=== PATIENT | female | born 1950 | race Caucasian/White ===

== ENCOUNTER → 2018-11-29 | Outpatient (CLI) | payer MEDICARE, BC ==
--- NOTE | 2018-11-30 13:54 | MM ---
Reason for exam: screening (asymptomatic). Last mammogram was performed 3 years ago. History: Patient is postmenopausal. Family history of breast cancer in paternal cousin and breast cancer in paternal grandmother. Reductions of both breasts, 2008. Took estrogen for 22 years beginning at age 33. Physical Findings: A clinical breast exam by your physician is recommended on an annual basis and results should be correlated with mammographic findings. MG 3D Screening Mammo W/Cad Bilateral CC and MLO view(s) were taken. Prior study comparison: December 03, 2015, bilateral MG 3d screening mammo w/cad. May 31, 2013, CAD bilateral diagnostic mammogram. There is a 3mm group of left lower outer quadrant calcifications at far posterior depth. No suspicious abnormality on the right. Post surgical change on the left. ASSESSMENT: Incomplete: need additional imaging evaluation, BI-RAD 0 RECOMMENDATION: Special view mammogram of the left breast. Ultrasound of the right breast. (pain) [facility] will attempt to contact patient to return for supplemental views and ultrasound.
== END | disposition home or self-care (01) ==
LOC: RADMAMWWP 12:41
PROVIDERS: ATTEND Family Medicine
DX: Z12.31 Encounter for screening mammogram for malignant neoplasm of breast (principal)
CPT/HCPCS: 77063; 77067

== ENCOUNTER → 2018-12-09 | Outpatient (CLI) | payer MEDICARE, BC ==
--- NOTE | 2018-12-09 11:41 | MM ---
Reason for exam: additional evaluation requested from abnormal screening. Last mammogram was performed less than 1 month ago. History: Patient is postmenopausal. Family history of breast cancer in paternal cousin and breast cancer in paternal grandmother. Reductions of both breasts, 2008. Took estrogen for 22 years beginning at age 33. Physical Findings: Nurse did not find any significant physical abnormalities on exam. MG 3D Work Up W/Cad LT CC with magnification, LM with magnification, and LM view(s) were taken of the left breast. Prior study comparison: November 29, 2018, bilateral MG 3d screening mammo w/cad. December 03, 2015, bilateral MG 3d screening mammo w/cad. There are scattered fibroglandular densities. Posterior scarring. Approximately 3 course calcifications are present posteriorly in the lower outer quadrant. These could be dystrophic secretory or vascular and were seen back to 2012. These results were verbally communicated with the patient and result sheet given to the patient on 12/09/18. ASSESSMENT: Incomplete: need additional imaging evaluation, BI-RAD 0 RECOMMENDATION: Ultrasound. (for pain)
--- NOTE | 2018-12-09 11:43 | USB ---
Reason for exam: additional evaluation requested from abnormal screening. History: Patient is postmenopausal. Family history of breast cancer in paternal cousin and breast cancer in paternal grandmother. Reductions of both breasts, 2008. Took estrogen for 22 years beginning at age 33. US Breast Workup Limited RT Right limited breast ultrasound including focal area of concern, retroareolar and axilla demonstrates a 5 x 5 x 6mm oval, solid, hypoechoic and hyperechoic lesion at 9 o'clock possible fat necrosis or tiny hematoma for which a 3 month follow up is recommended and a 13mm oval, benign lymph node at the axilla tail. These results were verbally communicated with the patient and result sheet given to the patient on 12/09/18. ASSESSMENT: Probably benign, BI-RAD 3 RECOMMENDATION: Ultrasound of the right breast in 3 months. (9 o'clock)
== END | disposition home or self-care (01) ==
LOC: RADMAMWWP 10:08
PROVIDERS: ATTEND Family Medicine
DX: R92.8 Other abnormal and inconclusive findings on diagnostic imaging of breast (principal)
CPT/HCPCS: 77065; 76642; G0279; 77061

== ENCOUNTER → 2019-04-06 | Outpatient (CLI) | payer MEDICARE, BC ==
--- NOTE | 2019-04-06 10:53 | USB ---
Reason for exam: follow-up at short interval from prior study. History: Patient is postmenopausal. Family history of breast cancer in paternal cousin and breast cancer in paternal grandmother. Reductions of both breasts, 2007. Took estrogen for 22 years beginning at age 33. Physical Findings: Nurse Summary: prominent tissue at scars, tenderness right outer breast, all soft, movable (nurse ts). US Breast Limited RT Right limited breast ultrasound including focal area of concern, retroareolar and axilla demonstrates a 5 x 4 x 6mm oval, hypoechoic lesion with echogenic rim at 9 o'clock and a 3 x 3 x 2mm lobular, hypoechoic lesion with echogenic rim at 10 o'clock. Biopsy of both recommended. These results were verbally communicated with the patient and result sheet given to the patient on 04/06/19. ASSESSMENT: Suspicious, BI-RAD 4 RECOMMENDATION: Ultrasound core biopsy of the right breast. (x 2) Patient not interested in scheduling surgical consult or biopsy at this time. Dr. Salgado's office notified 04/06/19 t 10:35am.
== END | disposition home or self-care (01) ==
LOC: RADUSWWP 09:23
PROVIDERS: ATTEND Family Medicine
DX: R92.8 Other abnormal and inconclusive findings on diagnostic imaging of breast (principal)

== ENCOUNTER → 2019-04-27 | Outpatient (CLI) | payer MEDICARE, BC ==
[2019-04-27 15:56] VITALS: BP 127/77; PULSE 61; RESP 16; TEMP 98; BMI 31.1
--- NOTE | 2019-04-27 16:51 | P.GSHP ---
History of Present Illness H&P Date: 04/27/19 Chief Complaint: abnormal mammogram and ultrasound of the breast, breast pain Vi is a 68-year-old white female who comes for breast evaluation secondary to radiographic abnormality. [place] [address]. There was a 3 mm groove with left lower outer quadrant calcifications. No suspicious abnormality was noted on the right. Special mammographic views of the left breast were recommended an ultrasound of the right breast for pain w as recommended. The patient had repeat views of the left breast on and [id number] the patient's findings revealed again 3 coarse calcifications posteriorly in the lower outer quadrant. The patient then proceeded to a right breast ultrasound for which repeat right breast ultrasound and 3 months was recommended this is most recently done on [id number]. This revealed 2 areas of concern one which was a 5 x 6 mm lesion at 9:00 and the second 3 x 2 mm lesion at 10:00 and biopsy of both of these were recommended. Of importance is the fact that the patient has had bilateral breast reduction after back surgery. Her breast were 46 triple D and she is now down to a cup size of C. The patient herself does not feel any masses or lumps in her breasts. She does complain of some discomfort in the left lateral breast. She states that this is in the lower aspect of the breast and occurs when she takes deep breaths. She is uncertain to whether this is actually in the breast or may be related to the muscles of the chest wall or lungs. Patient does not have any nipple discharge or skin changes. Caffiene two cups of coffee, she drinks 3 cola week; she does not smoke and is not exposed to second hand smoke. She eats chocolate occasionally. She does not take any hormones. Family History: paternal grandmother: breast paternal cousin: breast cancer at 36 Hormonal history: Menarche: 11 breast fed: none, first born at 22 Menopause: hysterectomy at 33 for bleeding, left ovaries BCP: 15 years hormones: none Medical history: none Surgical History: right foot left knee bilateral elbows two back surgeries Social History: smoke: none alcohol: occasional drugs: none - Constitutional Constitutional: Denies chills, Denies fever - EENT Eyes: denies blurred vision, denies pain Ears: deny: decreased hearing, tinnitus Ears, nose, mouth and throat: Reports headache, Denies sore throat - Breasts Breasts: bilateral: as per HPI - Cardiovascular Comment: left side ? breast vs. lungs Cardiovascular: Reports chest pain, Denies shortness of breath - Respiratory Comment: bronchitis Respiratory: Denies cough, Denies 7 - Gastrointestinal Gastrointestinal: Denies abdominal pain, Denies diarrhea, Denies nausea, Denies vomiting - Genitourinary (Female) Genitourinary: Denies dysuria, Denies hematuria - Menstruation Menstruation: Reports post hysterectomy - Musculoskeletal Comment: Arthritis, degenerative joint disease, myalgias - Integumentary Integumentary: Denies pruritus, Denies rash - Neurological Neurological: Reports numbness, Reports weakness - Psychiatric Psychiatric: Reports depression, Denies anxiety - Endocrine Endocrine: Reports fatigue, Denies weight change - Hematologic/Lymphatic Comment: low platelets in the past - Allergic/Immunologic Allergic/Immunologic: Reports as per HPI Past Medical History Past Medical History: Hyperlipidemia, Hypertension History of Any Multi-Drug Resistant Organisms: None Reported Past Surgical History: Back Surgery, Hysterectomy, Orthopedic Surgery Additional Past Surgical History / Comment(s): rt shoulder ,rt foot,lt knee,jessica elbows Past Psychological History: Anxiety, Depression Smoking Status: Never smoker Past Alcohol Use History: Rare Past Drug Use History: None Reported Medications and Allergies Home Medications Medication Instructions Recorded Confirmed Type Escitalopram [Lexapro] 20 mg PO DAILY 07/19/15 04/27/19 History Lisinopril [Zestril] 20 mg PO DAILY 07/19/15 04/27/19 History ALPRAZolam [Xanax] 0.5 mg PO DAILY PRN 04/27/19 04/27/19 History Acetaminophen [Tylenol] 500 mg PO Q4-6H PRN 04/27/19 04/27/19 History Atorvastatin [Lipitor] 20 mg PO DAILY 04/27/19 04/27/19 History Calcium Carbonate [Calcium] 600 mg PO DAILY 04/27/19 04/27/19 History Ferrous Sulfate [Iron] 325 mg PO DAILY 04/27/19 04/27/19 History buPROPion SR [Wellbutrin Sr] 150 mg PO BID 04/27/19 04/27/19 History Allergies Allergy/AdvReac Type Severity Reaction Status Date / Time No Known Allergies Allergy Verified 04/27/19 15:21 Surgical - Exam Vital Signs Temp Pulse Resp BP Pulse Ox 98.0 F 61 16 127/77 95 04/27/19 15:22 04/27/19 15:22 04/27/19 15:22 04/27/19 15:22 04/27/19 15:22 BMI 31.2 - General well developed, well nourished, no distress - Eyes normal ocular movement - ENT normal pinna, no hearing loss - Neck no masses, trachea midline, no lymphadectomy - Respiratory normal expansion, normal respiratory effort, clear to auscultation - Cardiovascular Rhythm: regular Heart Sounds: normal: S1, S2 - Abdomen Abdomen: soft, non tender, no guarding, no rigid, no rebound - Integumentary normal turgor - Neurologic no disoriented, no combative - Musculoskeletal normal gait, normal posture - Psychiatric oriented to time, oriented to person, oriented to place, speech is normal, memory intact breast exam: Patient's breast were 48 triple D patient's best now are 48 C Patient has scars bilaterally from bilateral breast reduction Right breast: Multi-positional exam no dominant masses or nodules of concern, well-healed scars from prior lateral breast reduction noted Right axilla: No adenopathy of concern Left breast: Multi-positional exam well-healed scar from prior breast reduction fibrocystic changes no dominant masses or nodules of concern other than the fact the patient does have increased nodularity in the lateral aspect of the breast which is consistent with the area that is painful for the patient Left axilla: No adenopathy of concern Results Radiographic results reviewed Assessment and Plan Assessment: Impression: 1. Radiographic abnormality right breast mammogram and ultrasound 2. Nodularity left breast upper outer quadrant area 3. Breast pain 4. Fibrocystic breast changes 5. Family history of cancer 6. Patient with marked degenerative joint disease making movement of the shoulders difficult 7. Scar tissue within the breast related to the bilateral breast reduction making the breast more difficult to examine, this may also be related to the breast pain Plan: 1. Ultrasound of left breast in the area of increased nodularity and pain 2. Ultrasound core biopsy right breast 3. I've instructed the patient about decreasing caffeine intake as this may increase breast discomfort 4. Follow-up after breast biopsies About 5 minutes spent with the patient, > 50% of time planning and face time. CC: DR. Salo Salgado
== END | disposition home or self-care (01) ==
LOC: WWCWWP 14:59
PROVIDERS: ATTEND Surgery
DX: Z53.9 Procedure and treatment not carried out, unspecified reason (principal)

== ENCOUNTER → 2019-04-29 | Outpatient (CLI) | payer MEDICARE, BC ==
--- NOTE | 2019-05-02 09:07 | USB ---
Reason for exam: additional evaluation requested from prior study. History: Patient is postmenopausal. Family history of breast cancer in paternal cousin and breast cancer in paternal grandmother. Reductions of both breasts, 2008. Took estrogen for 22 years beginning at age 33. Physical Findings: Nurse Summary: Patient complains of left breast upper outer quadrant breast pain x 2 months intermittently. Patient states Dr. Etienne felt left breast nodule x 2 days ago. Lateral left breast pain with exam (nurse mirella). US Breast LT Left complete breast ultrasound includes all four quadrants, the retroareolar region and axilla. Finding demonstrates no cystic or solid lesion seen. No suspicious sonographic finding. These results were verbally communicated with the patient and result sheet given to the patient on 04/29/19. ASSESSMENT: Negative, BI-RAD 1 RECOMMENDATION: Clinical management of the left breast. Recommendation remains for right biopsy x 2. Scheduled for biopsy 05/09/19.
== END | disposition home or self-care (01) ==
LOC: RADUSWWP 13:32
PROVIDERS: ATTEND Surgery
DX: R92.8 Other abnormal and inconclusive findings on diagnostic imaging of breast (principal)

== ENCOUNTER → 2019-05-09 | Day surgery (SDC) | payer MEDICARE, BC ==
[2019-05-09 11:39] VITALS: RESP 16; TEMP 98.5; BMI 31.1
[2019-05-09 14:00] VITALS: BP 100/65; PULSE 57
--- NOTE | 2019-05-10 04:46 | USB ---
EXAMINATION TYPE: US biopsy breast VAD RT (2 site), MG diagnostic mammo RT wo CAD DATE OF EXAM: 05/09/2019 CLINICAL HISTORY: 68-year-old female referred for ultrasound-guided right breast biopsy of small pers istent echogenic areas which were initially followed due to possibility of small hematomas. TECHNIQUE: Ultrasound guided core biopsy of the right breast. COMPARISON: 04/06/2019 and 12/09/2018 FINDINGS: The procedure of ultrasound guided core biopsy was explained to the patient. Benefits, alt ernatives, and risks were discussed. An informed consent was then obtained. The patient was placed in supine positioning for imaging and for the procedure. The overlying skin w as prepped and draped in usual sterile fashion. Lidocaine was used as anesthetic into the skin and toure bcutaneous tissue up to area of concern in the right breast in turn. SITE 1, 10:00: Under ultrasound guidance, a 13-gauge vacuum assisted mammotome Elite biopsy gun was u sed to obtain 4 core samples. Following this, a ribbon clip was left in lesion. We note that the ar ea became very difficult to visualize after the anesthetic administration which makes a worrisome les ion felt to be less likely. SITE 2, 9:00: Under ultrasound guidance, a 13-gauge vacuum assisted mammotome Elite biopsy gun was us ed to obtain 3 core samples. Following this, a coil clip was left in lesion. The patient tolerated the procedure well without any immediate complication. The patient was kept in the radiology department for short stay after the procedure and then discharged home in stable condi tion. Post procedure mammogram shows clips in satisfactory position. There may have been a vague density as sociated with the 10:00 site of ribbon clip deployment. IMPRESSION: Successful, uncomplicated ultrasound guided core biopsy of 2 relatively similar echogenic lesions in the right breast, 9:00 and 10:00, initially suspected to represent small hematomas but persisting aft er 3 months. Full pathology results to follow.
== END ==
LOC: RADUSWWP 11:17
PROVIDERS: ATTEND Surgery
DX: N60.91 Unspecified benign mammary dysplasia of right breast (principal); R92.1 Mammographic calcification found on diagnostic imaging of breast; N60.11 Diffuse cystic mastopathy of right breast; R92.8 Other abnormal and inconclusive findings on diagnostic imaging of breast
CPT/HCPCS: 88305; 77065; 19083; 19084; A4648; J2001

== ENCOUNTER → 2019-05-13 | Outpatient (CLI) | payer MEDICARE, BC ==
[2019-05-13 11:57] VITALS: BP 151/78; PULSE 62; RESP 18; TEMP 97.9; BMI 31.1
--- NOTE | 2019-05-13 12:23 | P.PN ---
Subjective Progress Note Date: 05/13/19 Principal diagnosis: atypia Core biopsy right breast at 10:00 Vi is a 68 white female who underwent ultrasound-guided core biopsy of 2 areas of concern in the right breast performed on [id number]. The lesion at 10:00 revealed focal atypical ductal hyperplasia with associated calcifications. The lesion at 9:00 was fibrocystic changes. The patient did not have any complications related to the procedure. Objective - Vital Signs Vital signs: Vital Signs Temp 97.9 F 05/13/19 11:54 Pulse 62 05/13/19 11:54 Resp 18 05/13/19 11:54 BP 151/78 05/13/19 11:54 Pulse Ox 96 05/13/19 11:54 - Exam BMI 29.3 - Constitutional General appearance: Present: average body habitus - EENT Eyes: Present: EOMI ENT: Present: hearing grossly normal - Neck Neck: Present: normal ROM - Respiratory Respiratory: bilateral: CTA - Cardiovascular Rhythm: regular Heart sounds: normal: S1, S2 - Integumentary Integumentary: Present: normal turgor - Musculoskeletal Musculoskeletal: Present: gait normal - Psychiatric Psychiatric: Present: A&O x's 3, appropriate affect, intact judgment & insight - Additional findings Additional findings: Breasts: Biopsy sites clean and dry mild ecchymosis No evidence of infection Assessment and Plan Assessment: Impression: 1. Ultrasound core biopsy right breast upper. Atypia 2. 9 o'clock position core biopsy benign fibrocystic disease 3. Family history of cancer 4. Patient with degenerative joint disease in. Movement of her shoulders 5. Patient status post bilateral reduction mammoplasty Plan: 1. Needle local excisional biopsy of area of atypia in the right breast with hpossible tissue transfer 2.Patient decreased caffiene intake Skin benefits of the needle local excisional biopsy were discussed with the patient and her . They understand she will be scheduled in the near future. Cc:
== END ==
LOC: WWCWWP 11:48
PROVIDERS: ATTEND Surgery
DX: Z53.9 Procedure and treatment not carried out, unspecified reason (principal)

== ENCOUNTER → 2019-07-07 | Outpatient (CLI) | payer MEDICARE, BC ==
[2019-07-07 14:30] VITALS: BP 123/79; PULSE 66; RESP 18; TEMP 98.4
== END | disposition home or self-care (01) ==
LOC: WWCWWP 13:55
PROVIDERS: ATTEND Surgery
DX: Z53.9 Procedure and treatment not carried out, unspecified reason (principal)

== ENCOUNTER 2019-07-12 10:21 | Day surgery (SDC) | payer MEDICARE, BC ==
[2019-07-08 11:43] VITALS: BMI 31.1
--- NOTE | 2019-07-08 17:50 | P.PN ---
Curtis Lebron is a 68-year-old white female who underwent ultrasound-guided core biopsy of 2 areas of concern in the right breast on [id number]. The lesion at 10:00 revealed focal atypical ductal hyperplasia with associated calcifications. The lesion 9:00 was fibrocystic changes. The patient did not have any complications related to the procedure. She is going to undergo a needle local excisional biopsy of the area of atypical ductal hyperplasia. Family History: paternal grandmother: breast paternal cousin: breast cancer at 36 Hormonal history: Menarche: 11 breast fed: none, first born at 22 Menopause: hysterectomy at 33 for bleeding, left ovaries BCP: 15 years hormones: none Medical history: none Surgical History: right foot left knee bilateral elbows two back surgeries Social History: smoke: none alcohol: occasional drugs: none - Constitutional Constitutional: Denies chills, Denies fever - EENT Eyes: denies blurred vision, denies pain Ears: deny: decreased hearing, tinnitus Ears, nose, mouth and throat: Reports headache, Denies sore throat - Breasts Breasts: bilateral: as per HPI - Cardiovascular Comment: left side ? breast vs. lungs Cardiovascular: Reports chest pain, Denies shortness of breath - Respiratory Comment: bronchitis Respiratory: Denies cough, Denies 7 - Gastrointestinal Gastrointestinal: Denies abdominal pain, Denies diarrhea, Denies nausea, Denies vomiting - Genitourinary (Female) Genitourinary: Denies dysuria, Denies hematuria - Menstruation Menstruation: Reports post hysterectomy - Musculoskeletal Comment: Arthritis, degenerative joint disease, myalgias - Integumentary Integumentary: Denies pruritus, Denies rash - Neurological Neurological: Reports numbness, Reports weakness - Psychiatric Psychiatric: Reports depression, Denies anxiety - Endocrine Endocrine: Reports fatigue, Denies weight change - Hematologic/Lymphatic Comment: low platelets in the past - Allergic/Immunologic Allergic/Immunologic: Reports as per HPI Past Medical History Past Medical History: Hyperlipidemia, Hypertension History of Any Multi-Drug Resistant Organisms: None Reported Past Surgical History: Back Surgery, Hysterectomy, Orthopedic Surgery Additional Past Surgical History / Comment(s): rt shoulder ,rt foot,lt knee,jessica elbows Past Psychological History: Anxiety, Depression Smoking Status: Never smoker Past Alcohol Use History: Rare Past Drug Use History: None Reported Objective - Vital Signs Vital signs: Intake & Output 07/07/19 07/08/1920 18:59 06:59 18:59 Weight 74.843 kg - Exam BMI 31.2 - Constitutional General appearance: Present: average body habitus - EENT Eyes: Present: EOMI ENT: Present: hearing grossly normal - Neck Neck: Present: normal ROM - Respiratory Respiratory: bilateral: CTA - Cardiovascular Rhythm: regular Heart sounds: normal: S1, S2 - Gastrointestinal General gastrointestinal: Present: normal bowel sounds, soft - Integumentary Integumentary: Present: normal turgor - Musculoskeletal Musculoskeletal: Present: gait normal - Psychiatric Psychiatric: Present: A&O x's 3, appropriate affect, intact judgment & insight - Additional findings Additional findings: Breast exam: Patient's breast size 40 8C Patient has scars bilaterally from bilateral breast reduction Right breast: Multiple positional exam no dominant mass or nodule is of concern, well-healed scars from prior breast reduction Right axilla: No adenopathy of concern Left breast multiple positional exam without scar from prior breast reduction fibrocystic changes no dominant masses or nodules of concern The patient was noted to have nodularity in the lateral aspect of the breast which was consistent with the area that was painful for the patient Left axilla: No adenopathy of concern Assessment and Plan Assessment: Impression: 1. stero-tactic core biopsy right breast 2 areas 10:00 area focal atypical ductal hyperplasia 2. Nodularity left breast upper outer quadrant area following this 3. Breast pain 4. Fibrocystic breast changes 5. Family history of cancer 6. Patient with degenerative joint disease making movement of his shoulders difficult 7. Scar tissue within the breast related to bilateral breast reduction making breast more difficult to examine Plan: needle localization and excisional biopsy area of atypia in the right breast Risks and benefits of surgery discussed with the patient and this will be done in the near future.
[~2019-07-12 10:21] MED LIST: DEXAMETHASONE SOD PHOSPHATE 10 MG/ML 1 ML VIAL IV ONE; HEPARIN SODIUM,PORCINE 5,000 UNIT/ML 1 ML VIAL SQ ONE; HYDROmorphone 0.5 MG/0.5 ML SYRINGE IVP PRN; LACTATED RINGERS 1,000 ML IV SCH; LIDOCAINE 1% 20 ML VIAL (10MG/ML) FOR IV START INTRADERMA PRN; MIDAZOLAM 2 MG/2 ML VIAL IV PRN; ONDANSETRON 4 MG/2 ML VIAL IVP ONE; Pre Op ABX Message 1 EACH MISC MISCELLANE ONE; SCOPOLAMINE 1.5MG/72HR PATCH TRANSDERM ONE
[2019-07-12 11:31] VITALS: RESP 16
[2019-07-12] MEDS ORDERED: LIDOCAINE 1% INJ 10MG/ML (20 ML MDV) SQ ONE ×3 (11:38→13:31)
[2019-07-12] MEDS ORDERED: fentaNYL (PF) 50 MCG/ML 2 ML AMP ONE (13:09)
[2019-07-12] MEDS ORDERED: PROPOFOL 10 MG/ML 20 ML VIAL IV ONE (13:09)
[2019-07-12] MEDS ORDERED: LIDOCAINE 1% INJ 10MG/ML (20 ML MDV) ONE (13:09)
[2019-07-12] MEDS ORDERED: MIDAZOLAM 2 MG/2 ML VIAL ONE (13:09)
[2019-07-12] MEDS ORDERED: SUCCINYLCHOLINE CHLORIDE 100 MG/5 ML SYR IV ONE (13:09)
[2019-07-12] MEDS ORDERED: LIDOCAINE (PF) 10 MG/ML 2 ML VIAL SQ ONE (13:17)
[2019-07-12] MEDS ORDERED: LACTATED RINGERS 1,000 ML IV ONE (13:36)
--- NOTE | 2019-07-12 14:26 | P.OP ---
Date of Procedure: 07/12/19 Preoperative Diagnosis: atypia on right core biopsy Postoperative Diagnosis: same Procedure(s) Performed: Localization excisional biopsy of area of atypia via crescent mastopexy incision resulting in mastopexy and tissue transfer Anesthesia: ZHANEA Surgeon: Neetu Etienne Estimated Blood Loss (ml): 1 IV fluids (ml): 700 Pathology: other (Breast tissue) Condition: stable Disposition: same day Indications for Procedure: core Biopsy revealing atypia in the right breast Operative Findings: Fibrofatty breast tissue Description of Procedure: The patient is a 68-year-old white female who underwent core biopsy of the lesion in the right breast. This revealed atypia and needle local excisional biopsy was recommended. The preoperative holding area ptosis grade 2/3 was noted. The patient was marked and the intended the position of the nipple areolar complex was chosen. The new periareolar complex was chosen and marked as well. This was approximately 1-1/2 cm superior to the 12 o'clock position of the areola. An incision was made across the periareolar marked as well as at the periareolar edge. The skin within this area was de-epithelialized. A curvilinear incision was made within the de-epithelialized sewn adjacent to the planned lumpectomy. Dissection was performed in the anterior mammary fascial plane towards the area of the shaft of the needle. Circumferential dissection around the target lesion was performed. The specimen was removed and painted for orientation. Specimen radiograph confirmed the area of concern was removed. The wound was irrigated. Hemostasis was secured. Titanium clips were placed to gosia the tumor bed. Dissection was performed at the deep layer of the breast along the pectoralis major muscle. Approximately 20 cm of tissue was freed. The defect was closed in a [id number] fashion using 3-0 Vicryl suture. This allowed for reshaping of the breast mound to repair the defect. The skin was then closed using interrupted 3-0 Vicryl. The subcu tissue tissue was closed using a 4-0 Monocryl. The nipple areolar complex was noted to be in the correct location. The patient tolerated the procedure in stable condition. A contralateral procedure was not performed. All needle and instrument counts were correct at the end of the case.
--- NOTE | 2019-07-12 14:26 | MM ---
EXAMINATION TYPE: MG pre op needle loc RT, MG surgical specimen RT DATE OF EXAM: 07/12/2019 COMPARISON: Prior mammogram and ultrasound May 09, 2019 and older studies. CLINICAL HISTORY: Biopsy with high risk lesion focal atypic ductal hyperplasia. TECHNIQUE: Needle localization with wire placement and surgical excision of area of concern in the right breast ribbon clip corresponding to high risk lesion. FINDINGS: The procedure of needle localization with wire placement and than surgical excision was explained to the patient. Benefits, alternatives, and risks were discussed. An informed consent was then obtained. The shortest pathway for procedure was chosen. Shortest pathway was cranial approach. The overlying skin was prepped and draped in usual sterile fashion. Lidocaine was used as anesthetic into the skin and subcutaneous tissue up to the level of area of concern. A 5 cm needle was used. It was placed via a cranial approach under mammographic guidance. Subsequent 90 degrees mammogram show the needle to be in satisfactory position relative to the targeted area. At this point, wire was placed and the needle was withdrawn. The wire was fixed to patient's skin. Images were marked for surgeon. The patient tolerated the procedure well without any immediate complication. The patient was kept in the radiology department for short stay after the procedure and then taken to surgery for surgical excision. Targeted biopsy clip and wire are identified in specimen mammogram. The patient was kept in hospital for short stay after the procedure and then discharged home in stable condition. IMPRESSION: Successful, uncomplicated needle localization with wire placement and surgical excision of targeted biopsy clip in the right breast, full pathology results to follow. Pathology Results: High Risk RIGHT BREAST TISSUE, EXCISIONAL BIOPSY: Microscopic atypical duct hyperplasia (similar to that seen in the prior biopsy, [id number], part A) in a background of fibrocystic changes and abundant adipose tissue. Purple-steven inked margin of excision is less than 1 mm from ADH, all other margins are negative for ADH. Recommendation Follow up mammogram of the right breast in 6 months. MTDD
--- NOTE | 2019-07-12 14:28 | P.DS ---
Providers Attending physician: Neetu Etienne Primary care physician: Saúl Salgado Plan - Discharge Summary Discharge Rx Participant: No New Discharge Prescriptions: No Action Lisinopril [Zestril] 20 mg PO DAILY ALPRAZolam [Xanax] 0.5 mg PO DAILY PRN PRN Reason: Anxiety Atorvastatin [Lipitor] 20 mg PO DAILY Ferrous Sulfate [Iron] 325 mg PO DAILY Acetaminophen [Tylenol] 500 mg PO Q4-6H PRN PRN Reason: Pain Citalopram Hydrobromide [Citalopram HBr] 40 mg PO DAILY Discharge Medication List Lisinopril [Zestril] 20 mg PO DAILY 07/19/15 [History] ALPRAZolam [Xanax] 0.5 mg PO DAILY PRN 04/27/19 [History] Acetaminophen [Tylenol] 500 mg PO Q4-6H PRN 04/27/19 [History] Atorvastatin [Lipitor] 20 mg PO DAILY 04/27/19 [History] Ferrous Sulfate [Iron] 325 mg PO DAILY 04/27/19 [History] Citalopram Hydrobromide [Citalopram HBr] 40 mg PO DAILY 07/08/19 [History] Follow up Appointment(s)/Referral(s): Neetu Etienne MD [STAFF PHYSICIAN] - 1 Week Activity/Diet/Wound Care/Special Instructions: do not drive for 24 hours after discharge may shower after 48 hours Discharge Disposition: HOME SELF-CARE
[2019-07-12 14:54] VITALS: TEMP 97
[2019-07-12 15:46] VITALS: BP 123/65; PULSE 64
== END 2019-07-12 16:05 | disposition home or self-care (01) ==
LOC: OR 10:21
PROVIDERS: ATTEND Surgery
DX: N60.91 Unspecified benign mammary dysplasia of right breast (principal); N60.11 Diffuse cystic mastopathy of right breast; Z80.3 Family history of malignant neoplasm of breast; Z85.3 Personal history of malignant neoplasm of breast; I10 Essential (primary) hypertension; E78.5 Hyperlipidemia, unspecified; F41.9 Anxiety disorder, unspecified; K21.9 Gastro-esophageal reflux disease without esophagitis; F32.9 Major depressive disorder, single episode, unspecified; M19.90 Unspecified osteoarthritis, unspecified site; Z90.710 Acquired absence of both cervix and uterus; Z90.721 Acquired absence of ovaries, unilateral; Z98.890 Other specified postprocedural states; Z79.899 Other long term (current) drug therapy
CPT/HCPCS: 88307; 76098; 19281; 19125; J2250; J1644; J1100; J2405; J2001; J3010; J0330; J2704

== ENCOUNTER → 2019-07-22 | Outpatient (CLI) | payer MEDICARE, BC ==
[2019-07-22 12:31] VITALS: BP 118/74; PULSE 77; RESP 18; TEMP 98.4
--- NOTE | 2019-07-22 12:43 | P.PN ---
Subjective Progress Note Date: 07/22/19 Principal diagnosis: atypical hyperplasia There is a 69-year-old white female status post right breast needle local excisional biopsy and 12 120. The pathology revealed microscopic atypical ductal hyperplasia margins are all negative although the posterior margin was less than 1 mm from the atypical ductal hyperplasia. The patient has no complaints since the procedure. Objective - Vital Signs Vital signs: Vital Signs Temp 98.4 F 07/22/19 12:28 Pulse 77 07/22/19 12:28 Resp 18 07/22/19 12:28 BP 118/74 07/22/19 12:28 Pulse Ox 95 07/22/19 12:28 Intake & Output 07/21/19 07/22/19 07/22/19 18:59 06:59 18:59 Weight 77.111 kg - Exam BMI 32.4 - Constitutional General appearance: Present: obese - EENT Eyes: Present: EOMI ENT: Present: hearing grossly normal - Neck Neck: Present: normal ROM - Respiratory Respiratory: bilateral: CTA - Cardiovascular Rhythm: regular Heart sounds: normal: S1, S2 - Integumentary Integumentary Comment(s): incision clean and dry no evidence of infection Integumentary: Present: normal turgor Assessment and Plan Assessment: Impression/Plan: 1. Patient status post right breast needle local excisional biopsy for area of atypia pathology reveals atypia excised 2. Repeat right breast mammogram in 6 months time with physician exam at that time 3. Sutures to be removed today CC: Salo Salgado Time with Patient: Less than 30
== END | disposition home or self-care (01) ==
LOC: WWCWWP 12:17
PROVIDERS: ATTEND Surgery
DX: Z53.9 Procedure and treatment not carried out, unspecified reason (principal)

== ENCOUNTER → 2019-11-30 | Outpatient (CLI) | payer MEDICARE, BC ==
--- NOTE | 2019-11-30 10:14 | MR ---
EXAMINATION TYPE: MR cervical spine wo con DATE OF EXAM: 11/30/2019 COMPARISON: None HISTORY: Neck pain, left arm/hand numbness, headaches TECHNIQUE: Multiplanar, multisequence images of the cervical spine were acquired. C2-C3: No evidence for degenerative disc disease. No disc bulge/herniation or protrusion. No Canal stenosis. Foramina are patent bilaterally. There is facet arthropathy on the left. C3-C4: Hypertrophic change at the facet, uncovertebral joint hypertrophy causes left-sided foraminal encroachment. No evident disc herniation or spinal stenosis. C4-C5: No evidence for degenerative disc disease. No disc bulge/herniation or protrusion. No Canal stenosis. Foramina are patent bilaterally. C5-C6: Posterior extension of endplate disc complex contacts the anterior cervical cord. Only mild ce ntral stenosis. Uncovertebral joint hypertrophy and facet arthropathy causes some right-sided foramin al encroachment. C6-C7: No evidence for degenerative disc disease. No disc bulge/herniation or protrusion. No Canal stenosis. Foramina are patent bilaterally. C7-T1: Posterior disc bulge causes mild anterior mass effect on the thecal sac. Question some mild fo raminal encroachment bilaterally, there is facet arthropathy change. Cervical segments are intact. There is normal alignment. Cervical spinal cord is of normal signal. Craniovertebral junction relationships are within normal limits. Cervical vertebral bodies show pre served height and alignment. There is multilevel spondylosis, endplate discogenic marrow signal stiles e. Loss of disc height and signal present at intervertebral levels at C5-6 and C6-7, C7-T1. There is a partially empty sella. IMPRESSION: Degenerative disc disease, facet arthropathy, foraminal encroachment as described.
== END | disposition home or self-care (01) ==
LOC: RADMRIMAIN 08:45
PROVIDERS: ATTEND Family Medicine
DX: M50.30 Other cervical disc degeneration, unspecified cervical region (principal); M47.812 Spondylosis without myelopathy or radiculopathy, cervical region
CPT/HCPCS: 72141

== ENCOUNTER → 2020-01-10 | Outpatient (CLI) | payer MEDICARE, BC ==
--- NOTE | 2020-01-10 10:46 | MM ---
Reason for exam: follow-up at short interval from prior study. Last mammogram was performed 8 months ago. History: Patient is postmenopausal and has history of high-risk lesion on a previous biopsy at age 68. Family history of breast cancer in paternal cousin at age 35 and breast cancer in paternal grandmother. High risk MG pre op needle loc RT of the right breast, July 12, 2019. High risk US biopsy breast VAD RT of the right breast, May 09, 2019. High risk US biopsy breast add'l VAD RT of the right breast, May 09, 2019. Reductions of both breasts, 2008. Took estrogen for 22 years beginning at age 33. Physical Findings: Nurse did not find any significant physical abnormalities on exam. MG 3D Diag Mammo W/Cad RT CC and MLO view(s) were taken of the right breast. Prior study comparison: May 09, 2019, right breast MG diagnostic mammo RT wo CAD. December 09, 2018, left breast MG 3d work up w/cad LT. There are scattered fibroglandular densities. Previous mammotome biopsy in the right breast. New post surgical change with distortion and clips. Focal asymmetry 12 o'clock posteriorly appears to have been present on prior 2016 3D images. These results were verbally communicated with the patient and result sheet given to the patient on 01/10/20. ASSESSMENT: Probably benign, BI-RAD 3 RECOMMENDATION: Follow-up diagnostic mammogram of the right breast in 6 months. Patient is due now for left mammogram, patient is aware.
== END | disposition home or self-care (01) ==
LOC: RADMAMWWP 09:34
PROVIDERS: ATTEND Surgery
DX: R92.8 Other abnormal and inconclusive findings on diagnostic imaging of breast (principal)
CPT/HCPCS: 77065; G0279; 77061

== ENCOUNTER → 2020-01-19 | Outpatient (CLI) | payer MEDICARE, BC ==
--- NOTE | 2020-01-19 11:02 | P.PN ---
Subjective Progress Note Date: 01/19/20 Principal diagnosis: fibrocystic changes of breast right breast atypia Vi is a 68-year-old white female who presented on 04-27-19 for breast evaluation secondary to radiographic abnormality. [place] [address]. There was a 3 mm groove with left lower outer quadrant calcifications. No suspicious abnormality was noted on the right. Special mammographic views of the left breast were recommended an ultrasound of the right breast for pain was recommended. The patient had repeat views of the left breast on and the patient's findings revealed again 3 coarse calcifications posteriorly in the lower outer quadrant. The patient then proceeded to a right breast ultrasound for which repeat right breast ultrasound and 3 months was recommended this was done on 255710. This revealed 2 areas of concern one which was a 5 x 6 mm lesion at 9:00 and the second 3 x 2 mm lesion at 10:00 and biopsy of both of these were recommended. Of importance is the fact that the patient has had bilateral breast reduction after back surgery. Her breast were 46 triple D and she is now down to a cup size of C. The patient herself does not feel any masses or lumps in her breasts. She does not complain of any breast pain. Patient does not have any nipple discharge or skin changes. She had a core biopsy of the right breast in 2 areas on [id number]. In the 10 o'clock position of the right breast there was some focal atypia noted in the 9 o'clock position there was just fibrocystic change. She subsequently underwent a right breast excisional biopsy of the area of atypia on July 122019. This revealed again some microscopic atypia in a background of fibrocystic changes. The patient is being followed conservatively with a repeat right breast mammogram at 6 months. The right breast mammogram was performed on 211 120. This was felt to be benign BIRADS 3 and a follow-up right breast mammogram in 6 months was recommended. There were noted to be some postsurgical changes with distortion and clips. She is doing at this time for a left breast mammogram. Caffiene: two cups of coffee, she drinks 3 cola week; she does not smoke and is not exposed to second hand smoke. She eats chocolate occasionally. She does not take any hormones. Case analysis: Patient: A 2.5% average risk 2.2% (Risk temperature 1% average risk 6.3% Family History: paternal grandmother: breast paternal cousin: breast cancer at 36 Hormonal history: Menarche: 11 breast fed: none, first born at 22 Menopause: hysterectomy at 33 for bleeding, left ovaries BCP: 15 years hormones: none Medical history: cervical spine spurs/ headaches bulging disc in her sine Surgical History: right foot left knee bilateral elbows two back surgeries Social History: smoke: none alcohol: occasional drugs: none - Constitutional Constitutional: Denies chills, Denies fever - EENT Eyes: denies blurred vision, denies pain Ears: deny: decreased hearing, tinnitus Ears, nose, mouth and throat: Reports headache, Denies sore throat - Breasts Breasts: bilateral: as per HPI - Cardiovascular Comment: left side ? breast vs. lungs Cardiovascular: Reports chest pain, Denies shortness of breath - Respiratory Comment: bronchitis Respiratory: Denies cough - Gastrointestinal Gastrointestinal: Denies abdominal pain, Denies diarrhea, Denies nausea, Denies vomiting - Genitourinary (Female) Genitourinary: Denies dysuria, Denies hematuria - Menstruation Menstruation: Reports post hysterectomy - Musculoskeletal Comment: Arthritis, degenerative joint disease, myalgias, rods in back - Integumentary Integumentary: Denies pruritus, Denies rash - Neurological Neurological: Reports numbness, Reports weakness - Psychiatric Psychiatric: Reports depression, Denies anxiety - Endocrine Endocrine: Reports fatigue, Denies weight change - Hematologic/Lymphatic Comment: low platelets in the past Objective - Exam BMI 32.2 - Constitutional General appearance: Present: obese - EENT Eyes: Present: EOMI ENT: Present: hearing grossly normal - Neck Details: limited ROM - Respiratory Respiratory: bilateral: CTA - Cardiovascular Rhythm: regular Heart sounds: normal: S1, S2 - Gastrointestinal General gastrointestinal: Present: normal bowel sounds, soft - Integumentary Integumentary: Present: normal turgor - Musculoskeletal Musculoskeletal: Present: gait normal - Psychiatric Psychiatric: Present: A&O x's 3, appropriate affect, intact judgment & insight - Additional findings Additional findings: Breast: BRA: 40C inspection: grade 2 ptosis bilateral palpation: right breast: Well-healed scar from prior biopsy circumareolar, multiple positional exam no dominant masses or nodules of concern Right axilla: No adenopathy of concern Left breast: Multiple positional exam no dominant masses or nodules of concern Left axilla: No adenopathy of concern Assessment and Plan Assessment: Impression: 1. atypia on open biopsy of her right breast 07-12-19 2. degenerative disc disease 3. Increased risk of breast cancer and DL model analysis Plan: 1. repeat left breast mammogram due now 2. follow up after left breast mammogram 3. consider chemo-reduction therapy/discussed this with the patient and she is not interested at this time CC: Dr. Salgado encounter 25 minutes, > 50% of time in planning and counselling
[2020-01-19 11:06] VITALS: BP 127/78; PULSE 69; RESP 18; TEMP 98.1
== END | disposition home or self-care (01) ==
LOC: WWCWWP 10:20
PROVIDERS: ATTEND Surgery
DX: Z53.9 Procedure and treatment not carried out, unspecified reason (principal)

== ENCOUNTER → 2020-01-31 | Outpatient (CLI) | payer MEDICARE, BC ==
--- NOTE | 2020-01-31 14:36 | MM ---
Reason for exam: additional evaluation requested from prior study. Last mammogram was performed 1 month ago. History: Patient is postmenopausal and has history of high-risk lesion on a previous biopsy at age 68. Family history of breast cancer in paternal cousin at age 35 and breast cancer in paternal grandmother. High risk MG pre op needle loc RT of the right breast, July 12, 2019. High risk US biopsy breast VAD RT of the right breast, May 09, 2019. High risk US biopsy breast add'l VAD RT of the right breast, May 09, 2019. Reductions of both breasts, 2008. Took estrogen for 22 years beginning at age 33. Physical Findings: Breast exam performed on 01/10/20. MG 3D Diag Mammo W/Cad LT CC, MLO, CCRM, spot compression MLO, and spot compression CC view(s) were taken of the left breast. Prior study comparison: January 10, 2020, right breast MG 3d diag mammo w/cad RT. May 09, 2019, right breast MG diagnostic mammo RT wo CAD. The breast tissue is heterogeneously dense. This may lower the sensitivity of mammography. Stable asymmetric density left upper outer quadrant. These results were verbally communicated with the patient and result sheet given to the patient on 01/31/20. ASSESSMENT: Benign, BI-RAD 2 RECOMMENDATION: Routine screening mammogram of both breasts in 1 year.
== END | disposition home or self-care (01) ==
LOC: RADMAMWWP 13:19
PROVIDERS: ATTEND Surgery
DX: R92.8 Other abnormal and inconclusive findings on diagnostic imaging of breast (principal)
CPT/HCPCS: 77065; G0279; 77061

== ENCOUNTER → 2020-11-15 | Outpatient (CLI) | payer MEDICARE, BC ==
[2020-11-15 09:51] VITALS: BP 138/73; PULSE 64; RESP 18; TEMP 97.4
--- NOTE | 2020-11-15 10:41 | P.PN ---
Subjective Progress Note Date: 11/15/20 Principal diagnosis: history of atypia of the right breast Vi is a 70-year-old white female who comes for breast evaluation secondary to an area of nodularity in her right breast. A significance is the fact [place] [address] this was following a open biopsy of an area of atypia noted on ultrasound for biopsy. This was felt to be benign BIRADS 3 and follow-up diagnostic right breast mammogram in 6 months was recommended. [place] [address] and this was felt to be benign BIRADS 2. The patient is not complaining of any changes in her left breast at this time. The patient at this time states she has some mild discomfort near the area of the biopsy site in the right breast and has noted new onset of nodularity. She is concerned that this may be scar or something else. Of importance is the fact that the patient had bilateral breast reductions. She was a 39 6D and she is now a 46C. Additionally on her initial visit she is complaining of pain in the left side of the breast which she subsequently had cervical spine surgery in physical therapy and it appears that the pain was radiating from the area of the neck and back and this has resolved. Caffiene: two cups of coffee, she drinks 3 cola week; she does not smoke and is not exposed to second hand smoke. She eats chocolate occasionally. She does not take any hormones. Vi analysis : 5 year: 3.6% vs 2/2% lifetime: 9.7% vs. 6% Family History: paternal grandmother: breast paternal cousin: breast cancer at 36 Hormonal history: Menarche: 11 breast fed: none, first born at 22 Menopause: hysterectomy at 33 for bleeding, left ovaries BCP: 15 years hormones: none Medical history: cervical spine spurs/ headaches bulging disc in her sine Surgical History: right foot left knee bilateral elbows two back surgeries neck fusion Social History: smoke: none alcohol: occasional drugs: none - Constitutional Constitutional: Denies chills, Denies fever - EENT Eyes: denies blurred vision, denies pain Ears: deny: decreased hearing, tinnitus Ears, nose, mouth and throat: Reports headache, Denies sore throat - Breasts Breasts: bilateral: as per HPI - Cardiovascular Comment: left side ? breast vs. lungs Cardiovascular: Reports chest pain, Denies shortness of breath - Respiratory Comment: bronchitis Respiratory: Denies cough - Gastrointestinal Gastrointestinal: Denies abdominal pain, Denies diarrhea, Denies nausea, Denies vomiting - Genitourinary (Female) Genitourinary: Denies dysuria, Denies hematuria - Menstruation Menstruation: Reports post hysterectomy - Musculoskeletal Comment: Arthritis, degenerative joint disease, myalgias, rods in back - Integumentary Integumentary: Denies pruritus, Denies rash - Neurological Neurological: Reports numbness, Reports weakness - Psychiatric Psychiatric: Reports depression, Denies anxiety - Endocrine Endocrine: Reports fatigue, Denies weight change - Hematologic/Lymphatic Comment: low platelets in the past Objective - Vital Signs Vital signs: Vital Signs Temp 97.4 F L 11/15/20 09:48 Pulse 64 11/15/20 09:48 Resp 18 11/15/20 09:48 BP 138/73 11/15/20 09:48 Pulse Ox 97 11/15/20 09:48 Intake & Output 11/14/20 11/15/20 11/15/20 18:59 06:59 18:59 Weight 74.843 kg - Exam BMI 32.2 - Constitutional General appearance: Present: average body habitus - EENT Eyes: Present: EOMI ENT: Present: hearing grossly normal - Neck Details: scars from cervical fusion - Respiratory Respiratory: bilateral: CTA - Cardiovascular Rhythm: regular Heart sounds: normal: S1, S2 - Integumentary Integumentary: Present: normal turgor - Musculoskeletal Musculoskeletal: Present: gait normal - Psychiatric Psychiatric: Present: A&O x's 3, appropriate affect, intact judgment & insight - Additional findings Additional findings: Breast Exam: BRA: 46C inspection: Reveals scars from previous surgery Palpation: Right breast: Multiple positional exam fibrocystic changes, increased nodularity in the 9 o'clock position approximately 4 cm from the nipple areolar complex this is tender to palpation as well Right axilla: No adenopathy of concern Left breast: Multiple positional exam fibrocystic changes, no dominant masses or nodules of concern Left axilla: No adenopathy of concern Fungal infection underneath both breast Well-healed scars from prior breast reduction surgery Assessment and Plan Assessment: Impression: 1. Bilateral prior breast reduction 2. Elevated breast cancer risk via Vi model assessment 3. Prior atypia on breast biopsy 4. Fungal infection under both breasts 5. Area of increased nodularity right breast at approximately 9 o'clock position 6. Skin changes over chest suggest dermatology consultation Plan: 1. Bilateral diagnostic mammogram and right breast ultrasound 2. Nystatin under breast 3. Follow-up after mammograms 4. We have discussed chemoprevention at this time the patient is not interested. CC: Dr. Salgado Encounter 40 monutes I have reviewed the patient's prior radiographs, and pathology. I spent time in examination and counseling.
== END ==
LOC: WWCWWP 09:29
PROVIDERS: ATTEND Surgery
DX: N63.10 Unspecified lump in the right breast, unspecified quadrant (principal); N61.0 Mastitis without abscess; R97.1 Elevated cancer antigen 125 [CA 125]; Z98.82 Breast implant status

== ENCOUNTER → 2020-11-30 | Outpatient (CLI) | payer MEDICARE, BC ==
--- NOTE | 2020-12-06 11:47 | MM ---
Reason for exam: clinical finding. Last mammogram was performed 10 months ago. History: Patient is postmenopausal and has history of high-risk lesion on a previous biopsy at age 68. Family history of breast cancer in paternal cousin at age 35 and breast cancer in paternal grandmother. High risk MG pre op needle loc RT of the right breast, July 12, 2019. High risk US biopsy breast VAD RT of the right breast, May 09, 2019. High risk US biopsy breast add'l VAD RT of the right breast, May 09, 2019. Reductions of both breasts, 2008. Took estrogen for 22 years beginning at age 33. Indicated problem(s): lump or thickening and pain in the right breast. Physical Findings: Nurse Summary: 1cm nodule in the right breast at 9 o'clock (nurse mj). MG 3D Diag Mammo W/Cad BEL Bilateral CC and MLO view(s) were taken. Prior study comparison: January 31, 2020, left breast MG 3d diag mammo w/cad LT. January 10, 2020, right breast MG 3d diag mammo w/cad RT. May 09, 2019, right breast MG diagnostic mammo RT wo CAD. November 29, 2018, bilateral MG 3d screening mammo w/cad. December 03, 2015, bilateral MG 3d screening mammo w/cad. There are scattered fibroglandular densities. Previous mammotome biopsy in the right breast. Post surgical scar right upper outer quadrant. Palpable marker 9 o'clock. Adjacent area of fat density with faint calcification and subtle nodularity. Ultrasound recommended. These results were verbally communicated with the patient and result sheet given to the patient on 11/30/20. ASSESSMENT: Incomplete: need additional imaging evaluation, BI-RAD 0 RECOMMENDATION: Ultrasound of the right breast.
--- NOTE | 2020-12-06 11:50 | USB ---
Reason for exam: additional evaluation requested from abnormal screening. History: Patient is postmenopausal and has history of high-risk lesion on a previous biopsy at age 68. Family history of breast cancer in paternal cousin at age 35 and breast cancer in paternal grandmother. High risk MG pre op needle loc RT of the right breast, July 12, 2019. High risk US biopsy breast VAD RT of the right breast, May 09, 2019. High risk US biopsy breast add'l VAD RT of the right breast, May 09, 2019. Reductions of both breasts, 2008. Took estrogen for 22 years beginning at age 33. US Breast Limited RT Right limited breast ultrasound including focal area of concern, retroareolar and axilla demonstrates a 1.3 x 3.8 x 0.47cm oval, mixed lesion at 9 o'clock, large cystic portions. This may represent area of developing fat necrosis oil cyst formation. However, in light of the previous atypia elsewhere in the breast and new palpable finding excision is recommended. These results were verbally communicated with the patient and result sheet given to the patient on 11/30/20. ASSESSMENT: Suspicious, BI-RAD 4 RECOMMENDATION: Surgical consultation of the right breast. (for excision, discussed with Dr. Etienne) Called office with mammographic findings and has scheduled an appointment for the patient for 12/27/20 at 12:[address] Etienne. PRELIMINARY REPORT CALLED AND FAXED TO DR. ETIENNE ON 12/06/20.
== END | disposition home or self-care (01) ==
LOC: RADMAMWWP 12:49
PROVIDERS: ATTEND Surgery
DX: N64.4 Mastodynia (principal); N63.10 Unspecified lump in the right breast, unspecified quadrant; Z80.3 Family history of malignant neoplasm of breast
CPT/HCPCS: 77066; 76642; G0279; 77062

== ENCOUNTER → 2020-12-17 | Outpatient (CLI) | payer MEDICARE, BC ==
[2020-12-17 12:04] LABS: Appearance,Urine Clear (Clear); Bacteria,Urine Rare /hpf; Bilirubin,Urine Negative (Negative); Blood,Urine Negative (Negative); Color,Urine Yellow; Glucose,Urine (UA) Negative (Negative); Ketones,Urine Negative (Negative); Leukocyte Esterase,Urine Small (Negative); Mucus,Urine Rare /hpf; Nitrite,Urine Negative (Negative); Protein,Urine Trace (Negative); RBC,Urine 1 /hpf (0-5); Specific Gravity,Urine 1.027 (1.001-1.035); Squamous Epithelial Cell,Urine 5 /hpf (0-4); Urobilinogen,Urine <2.0 mg/dL (<2.0); WBC,Urine 2 /hpf (0-5)
[2020-12-17 18:41] LABS: Basophils # (A) 0.02 X 10*3/uL (0.00-0.10); Basophils % (A) 0.2 %; Eosinophils # (A) 0.18 X 10*3/uL (0.04-0.35); Eosinophils % (A) 2.2 %; HGB 12.8 g/dL (12.0-15.0); Lymphocytes # (A) 2.05 X 10*3/uL (0.90-5.00); Lymphocytes % (A) 25.3 %; MCH 28.6 pg (27.0-32.0); MCHC 31.2 g/dL (32.0-37.0); MCV 91.7 fL (80.0-97.0); Mean Platelet Volume 10.3 fL (9.5-12.2); Monocytes # (A) 0.72 X 10*3/uL (0.20-1.00); Monocytes % (A) 8.9 %; Neutrophils # (A) 5.12 X 10*3/uL (1.80-7.70); Neutrophils % (A) 63.2 %; Platelet Count 275 X 10*3/uL (140-440); RBC 4.47 X 10*6/uL (4.10-5.20); RDW 14.3 % (11.5-14.5); WBC 8.11 X 10*3/uL (4.50-10.00)
[2020-12-17 19:22] LABS: African American GFR (CKD) 52.7 (60.0-200.0); Albumin 4.3 g/dL (3.80-4.90); Albumin/Globulin Ratio 1.72 (1.60-3.17); Anion Gap 7.9 mmol/L (4.00-12.00); BUN/Creat Ratio 16.67 Ratio (12.00-20.00); Calcium 9.5 mg/dL (8.7-10.3); Carbon Dioxide 28.1 mmol/L (21.6-31.8); Globulin 2.5 g/dL (1.6-3.3); Magnesium 1.9 mg/dL (1.5-2.4); Non-African American GFR(CKD) 45.4 (60.0-200.0); Potassium 4.9 mmol/L (3.5-5.5); Total Bilirubin 0.6 mg/dL (0.2-1.2); Total Protein 6.8 g/dL (6.2-8.2); Uric Acid 8.2 mg/dL (2.9-7.7)
== END | disposition home or self-care (01) ==
LOC: LABWHC1 10:44
PROVIDERS: ATTEND Family Medicine
DX: N18.2 Chronic kidney disease, stage 2 (mild) (principal)
CPT/HCPCS: 36415; 80053; 81001; 82306; 83735; 83970; 84100; 84550; 85025

== ENCOUNTER → 2020-12-27 | Outpatient (CLI) | payer MEDICARE, BC ==
[2020-12-27 13:28] VITALS: BP 130/79; PULSE 71; RESP 18; TEMP 98
--- NOTE | 2020-12-27 13:54 | P.PN ---
Subjective Progress Note Date: 12/27/20 Principal diagnosis: nodule right breast Vi is a 70-year-old white female who comes for breast evaluation secondary to an area of nodularity in her right breast for approximately 4 months. She had a bilateral mammogram and a [place] breast [place] [id number]. The bilateral mammogram revealed an area of fat density with faint calcifications and subtle nodularity and ultrasound was recommended. The ultrasound revealed in the retroareolar area a 1.3 x 3.8 cm oval mixed lesion at 9:00 with large cystic portions. It was felt this may represent an area of developing fat necrosis oil cyst formation. In light of previous atypia excision was recommended. The patient on [id number] underwent a right breast ultrasound-guided core biopsy. This revealed focal atypical ductal hyperplasia at the 10:00 location. At the 9:00 location fibrocystic changes were identified. [place] [id number]. This revealed microscopic atypical duct hyperplasia in a background of fibrocystic changes. Of importance is the fact that the patient had bilateral breast reductions. She was a 46D and she is now a 46C. Additionally on her initial visit she is complaining of pain in the left side of the breast which she subsequently had cervical spine surgery in physical therapy and it appears that the pain was radiating from the area of the neck and back and this has resolved. Caffiene: two cups of coffee, she drinks 3 cola week; she does not smoke and is not exposed to second hand smoke. She eats chocolate occasionally. She does not take any hormones. Vi analysis : 5 year: 3.6% vs 2/2% lifetime: 9.7% vs. 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 breast vs. lungs Cardiovascular: Reports chest pain, Denies shortness of breath - Respiratory Comment: bronchitis Respiratory: Denies cough - Gastrointestinal Gastrointestinal: Denies abdominal pain, Denies diarrhea, Denies nausea, Denies vomiting - Genitourinary (Female) Genitourinary: Denies dysuria, Denies hematuria - Menstruation Menstruation: Reports post hysterectomy - Musculoskeletal Comment: Arthritis, degenerative joint disease, myalgias, rods in back - Integumentary Integumentary: Denies pruritus, Denies rash - Neurological Neurological: Reports numbness, Reports weakness - Psychiatric Psychiatric: Reports depression, Denies anxiety - Endocrine Endocrine: Reports fatigue, Denies weight change - Hematologic/Lymphatic Comment: low platelets in the past Objective - Vital Signs Vital signs: Vital Signs Temp 98.0 F 12/27/20 13:25 Pulse 71 12/27/20 13:25 Resp 18 12/27/20 13:25 BP 130/79 12/27/20 13:25 Pulse Ox 97 12/27/20 13:25 Intake & Output 12/26/20 12/27/20 12/27/20 18:59 06:59 18:59 Weight 74.843 kg - Exam BMI 32.2 - Constitutional General appearance: Present: cooperative - EENT Eyes: Present: EOMI ENT: Present: hearing grossly normal - Neck Neck: Present: normal ROM - Respiratory Respiratory: bilateral: CTA - Cardiovascular Rhythm: regular Heart sounds: normal: S1, S2 - Integumentary Integumentary Comment(s): sunburn over chest - Musculoskeletal Musculoskeletal: Present: gait normal - Psychiatric Psychiatric: Present: A&O x's 3 - Additional findings Additional findings: Breast exam: BRA: 42C inspection: Well-healed scar breasts related to prior surgery Palpation: Right breast: Multi-positional exam increased area of nodularity at the 9 to 10 o'clock position consistent with the area seen on ultrasound Fibrocystic changes no other lesions of concern Right axilla: No adenopathy of concern Left breast: Multiple positional exam no dominant masses or nodules of concern Left axilla: No adenopathy of concern Assessment and Plan Assessment: Impression/plan: cervical spine spurs/ 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 Pineda from radiology she feels this is most likely consistent with fat necrosis and could be followed clinically however this is a palpable change and initial recommendation was for excisional biopsy therefore we will do an ultrasound core biopsy depending on this final recommendation CC: Dr. Salgado
== END ==
LOC: WWCWWP 12:54
PROVIDERS: ATTEND Surgery
DX: N60.11 Diffuse cystic mastopathy of right breast (principal); M46.02 Spinal enthesopathy, cervical region; R51.9 Headache, unspecified; M50.90 Cervical disc disorder, unspecified, unspecified cervical region; N19 Unspecified kidney failure

== ENCOUNTER → 2021-01-09 | Day surgery (SDC) | payer MEDICARE, BC ==
[2021-01-09 12:03] VITALS: RESP 16
[2021-01-09 13:23] VITALS: BP 122/78; PULSE 58; TEMP 98.2
--- NOTE | 2021-01-09 14:18 | USB ---
EXAMINATION TYPE: US biopsy breast VAD RT, MG diagnostic mammo RT wo CAD DATE OF EXAM: 01/09/2021 CLINICAL HISTORY: R92.8, Abnormal mammogram. TECHNIQUE: Ultrasound guided core biopsy of right breast. COMPARISON: 11/30/2020 FINDINGS: The procedure of ultrasound guided core biopsy was explained to the patient. Benefits, alt ernatives, and risks were discussed. An informed consent was then obtained. The patient was placed in supine positioning for imaging and for the procedure. The overlying skin w as prepped and draped in usual sterile fashion. Lidocaine buffered with bicarbonate was used as anes thetic into the skin and subcutaneous tissue up to area of concern in the right breast. A esdras was m daniela with surgical scalpel. Under ultrasound guidance, a 12-gauge vacuum assisted biopsy gun device was used to obtain 3 core rosibel ples. Following this, a biopsy clip was left in lesion. Mammogram confirms deployment of clip in th e area of previously seen asymmetry. The patient tolerated the procedure well without any immediate complication. The patient was kept in the radiology department for short stay after the procedure and then discharged home in stable condi tion. IMPRESSION: Successful, uncomplicated ultrasound guided core biopsy of area of concern in the right b reast, full pathology results to follow.
== END ==
LOC: RADUSWWP 11:50
PROVIDERS: ATTEND Surgery
DX: N64.1 Fat necrosis of breast (principal)
CPT/HCPCS: 88305; 77065; 19083; A4648; J2001

== ENCOUNTER → 2021-02-01 | Outpatient (CLI) | payer MEDICARE, BC ==
[2021-02-01 09:25] VITALS: BP 127/79; PULSE 64; RESP 16; TEMP 98.4
--- NOTE | 2021-02-01 09:35 | P.PN ---
Subjective Progress Note Date: 02/01/21 Principal diagnosis: Fat necrosis right breast Vi is a 70 year old white female status post an ultrasound core biopsy of a lesion in her right breast. The pathology was benign fat necrosis. She tolerated the biopsy with out complaints. Pathology revealed scar/fat necrosis. Objective - Vital Signs Vital signs: Vital Signs Temp 98.4 F 02/01/21 09:21 Pulse 64 02/01/21 09:21 Resp 16 02/01/21 09:21 BP 127/79 02/01/21 09:21 Pulse Ox 96 02/01/21 09:21 Intake & Output 01/31/21 02/01/21 02/01/21 18:59 06:59 18:59 Weight 76.204 kg - Constitutional General appearance: Present: cooperative - EENT Eyes: Present: EOMI ENT: Present: hearing grossly normal - Respiratory Respiratory: bilateral: CTA - Cardiovascular Heart sounds: normal: S1, S2 - Integumentary Integumentary Comment(s): Biopsies a clean and dry no evidence of any infection or hematoma Reexamination of the area near biopsy site in the right breast does not reveal any palpable mass for which I would recommend excision at this time - Musculoskeletal Musculoskeletal: Present: gait normal - Psychiatric Psychiatric: Present: A&O x's 3, appropriate affect, intact judgment & insight Assessment and Plan Assessment: Pressure: Fat necrosis" biopsy right breast Fibrocystic breast changes No discrete dominant mass or nodule which would warrant intervention or biopsy at this time Plan: Repeat right breast mammogram and ultrasound in 6 months with physician exam at that time Patient notes anything of concern she should call us sooner CC: Dr. Salgado
== END | disposition home or self-care (01) ==
LOC: WWCWWP 09:04
PROVIDERS: ATTEND Surgery
DX: Z53.9 Procedure and treatment not carried out, unspecified reason (principal)

== ENCOUNTER → 2021-02-26 | Outpatient (CLI) | payer MEDICARE, BC ==
[2021-02-26 15:32] LABS: Appearance,Urine Clear (Clear); Bilirubin,Urine Negative (Negative); Blood,Urine Negative (Negative); Color,Urine Colorless; Glucose,Urine (UA) Negative (Negative); Ketones,Urine Negative (Negative); Leukocyte Esterase,Urine Negative (Negative); Nitrite,Urine Negative (Negative); PH, Urine 5.5 (5.0-8.0); Protein,Urine Negative (Negative); Specific Gravity,Urine 1.007 (1.001-1.035); Urobilinogen,Urine <2.0 mg/dL (<2.0)
[2021-02-26 15:44] LABS: Creatinine,Urine Random 31.3 mg/dL; Protein/Creatinine Ratio,Urine 0.256
[2021-02-26 20:50] LABS: HCT 41.5 % (37.2-46.3); HGB 13.2 g/dL (12.0-15.0); MCH 29.5 pg (27.0-32.0); MCHC 31.8 g/dL (32.0-37.0); MCV 92.6 fL (80.0-97.0); Mean Platelet Volume 10.8 fL (9.5-12.2); Platelet Count 279 X 10*3/uL (140-440); RBC 4.48 X 10*6/uL (4.10-5.20); RDW 14.1 % (11.5-14.5); WBC 7.43 X 10*3/uL (4.50-10.00)
[2021-02-27 00:59] LABS: African American GFR (CKD) 43.7 (60.0-200.0); Albumin 4.7 g/dL (3.80-4.90); Albumin/Globulin Ratio 2.04 (1.60-3.17); Anion Gap 11.6 mmol/L (4.00-12.00); Calcium 9.9 mg/dL (8.7-10.3); Carbon Dioxide 24.4 mmol/L (21.6-31.8); Globulin 2.3 g/dL (1.6-3.3); Non-African American GFR(CKD) 37.7 (60.0-200.0); Phosphorus 2.8 mg/dL (2.4-5.1); Potassium 4.1 mmol/L (3.5-5.5); Total Bilirubin 0.5 mg/dL (0.3-1.2)
[2021-02-27 16:03] LABS: Microalbumin Creatinine Ratio <30 mg/g Creat (0-30); Urine Creatinine 32.3 mg/dL
== END | disposition home or self-care (01) ==
LOC: LABWHC1 11:40
PROVIDERS: ATTEND Internal Medicine
DX: N18.30 Chronic kidney disease, stage 3 unspecified (principal)
CPT/HCPCS: 36415; 80053; 81003; 82043; 82306; 82570; 83970; 84100; 84156; 85027

== ENCOUNTER → 2021-02-26 | Outpatient (CLI) | payer MEDICARE, BC ==
--- NOTE | 2021-02-27 07:32 | US ---
EXAMINATION TYPE: US kidneys/renal and bladder DATE OF EXAM: 02/26/2021 COMPARISON: NONE CLINICAL HISTORY: N18.3 Chronic kidney disease, stage III. ALE. EXAM MEASUREMENTS: Right Kidney: 9.2 x 5.0 x 5.1 cm Left Kidney: 9.1 x 4.9 x 5.1 cm Post Void Residual Volume: 166.12 mL Right Kidney: Anechoic area seen laterally: 2.8 x 2.2 x 2.7 cm. Left Kidney: No hydronephrosis or masses seen Bladder: Anechoic. Bilateral Jets seen: Yes Normal Post Void Residual: 7.92 mL IMPRESSION: Cystic lesion right kidney.
== END | disposition home or self-care (01) ==
LOC: RADUSWWP 16:01
PROVIDERS: ATTEND Internal Medicine
DX: Q61.9 Cystic kidney disease, unspecified (principal); N18.30 Chronic kidney disease, stage 3 unspecified
CPT/HCPCS: 76770

== ENCOUNTER → 2021-07-15 | Outpatient (CLI) | payer MEDICARE, OTHER ==
--- NOTE | 2021-07-15 14:15 | MM ---
Reason for exam: follow-up at short interval from prior study. Last mammogram was performed 6 months ago. History: Patient is postmenopausal and has history of high-risk lesion on a previous biopsy at age 68. Family history of breast cancer in paternal cousin at age 35 and breast cancer in paternal grandmother. Benign US biopsy breast VAD RT of the right breast, January 09, 2021. High risk MG pre op needle loc RT of the right breast, July 12, 2019. High risk US biopsy breast VAD RT of the right breast, May 09, 2019. High risk US biopsy breast add'l VAD RT of the right breast, May 09, 2019. Reductions of both breasts, 2008. Took estrogen for 22 years beginning at age 33. Physical Findings: Nurse did not find any significant physical abnormalities on exam. MG 3D Diag Mammo W/Cad RT CC and MLO view(s) were taken of the right breast. Prior study comparison: January 09, 2021, right breast MG diagnostic mammo RT wo CAD. November 30, 2020, bilateral MG 3d diag mammo w/cad BEL. There are scattered fibroglandular densities. Finding: Stable architectural distortion in the upper quadrant, anterior, middle position of the right breast. Previous mammotome biopsy in the right breast. There is no discrete abnormality. These results were verbally communicated with the patient and result sheet given to the patient on 07/15/21. ASSESSMENT: Benign, BI-RAD 2 RECOMMENDATION: Follow-up diagnostic mammogram of both breasts in 5 months. Back on schedule for November 2021.
--- NOTE | 2021-07-15 14:17 | USB ---
Reason for exam: follow-up at short interval from prior study. History: Patient is postmenopausal and has history of high-risk lesion on a previous biopsy at age 68. Family history of breast cancer in paternal cousin at age 35 and breast cancer in paternal grandmother. Benign US biopsy breast VAD RT of the right breast, January 09, 2021. High risk MG pre op needle loc RT of the right breast, July 12, 2019. High risk US biopsy breast VAD RT of the right breast, May 09, 2019. High risk US biopsy breast add'l VAD RT of the right breast, May 09, 2019. Reductions of both breasts, 2008. Took estrogen for 22 years beginning at age 33. US Breast Limited RT Right limited breast ultrasound including focal area of concern, retroareolar and axilla demonstrates a 7 x 5 x 15mm lobular, mixed lesion at 9 o'clock, previously biopsied, smaller in size. These results were verbally communicated with the patient and result sheet given to the patient on 07/15/21. ASSESSMENT: Benign, BI-RAD 2 RECOMMENDATION: Follow-up diagnostic mammogram of both breasts in 5 months. Back on schedule for November 2021.
== END | disposition home or self-care (01) ==
LOC: RADMAMWWP 13:16
PROVIDERS: ATTEND Surgery
DX: R92.8 Other abnormal and inconclusive findings on diagnostic imaging of breast (principal)
CPT/HCPCS: 77065; 76642; G0279; 77061

== ENCOUNTER → 2021-07-19 | Outpatient (CLI) | payer MEDICARE, OTHER ==
[2021-07-19 12:56] VITALS: BP 107/72; PULSE 74; RESP 18; TEMP 98.1
--- NOTE | 2021-07-19 13:47 | P.PN ---
Subjective Progress Note Date: 07/19/21 Vi is a 70 year old white female satus post a right breast ultrasound core biopsy on 01-10-22 which was scar/fat necrosis. She had a right breast mammogram and ultrasound on 07-15-21 which was benign BIRAD 2. She is due for bilateral mammogram in 5 months. She has not noted any new lumps masses or nodules of concern in either breast. She has had bilateral breast reduction in the past. Family History: paternal grandmother: breast paternal cousin: breast cancer at 36 Hormonal history: Menarche: 11 breast fed: none, first born at 22 Menopause: hysterectomy at 33 for bleeding, left ovaries BCP: 15 years hormones: none Medical history: oral sores Surgical History: right foot left knee bilateral elbows two back surgeries bilateral breast reduction back surgery Social History: smoke: none alcohol: occasional drugs: none - Constitutional Constitutional: Denies chills, Denies fever - EENT Eyes: denies blurred vision, denies pain Ears: deny: decreased hearing, tinnitus Ears, nose, mouth and throat: Reports headache, Denies sore throat - Breasts Breasts: bilateral: as per HPI - Cardiovascular Comment: left side ? breast vs. lungs Cardiovascular: Reports chest pain, Denies shortness of breath - Respiratory Comment: bronchitis Respiratory: Denies cough - Gastrointestinal Gastrointestinal: Denies abdominal pain, Denies diarrhea, Denies nausea, Denies vomiting - Genitourinary (Female) Genitourinary: Denies dysuria, Denies hematuria - Menstruation Menstruation: Reports post hysterectomy - Musculoskeletal Comment: Arthritis, degenerative joint disease, myalgias - Integumentary Integumentary: Denies pruritus, Denies rash - Neurological Neurological: Reports numbness, Reports weakness - Psychiatric Psychiatric: Reports depression, Denies anxiety - Endocrine Endocrine: Reports fatigue, Denies weight change - Hematologic/Lymphatic Comment: low platelets in the past - Allergic/Immunologic Allergic/Immunologic: Reports as per HPI Patient has declined a physical exam. Impression: 1. Bilateral fibrocystic breast changes 2. Recent mammogram of the right breast benign BIRADS 2 Plan: Repeat bilateral mammogram in 5 months with physician exam at that time CC: Dr. Salgado Objective - Vital Signs Vital signs: Vital Signs Temp 98.1 F 07/19/21 12:53 Pulse 74 07/19/21 12:53 Resp 18 07/19/21 12:53 BP 107/72 07/19/21 12:53 Pulse Ox 97 07/19/21 12:53 Intake & Output 07/18/21 07/19/21 07/19/21 18:59 06:59 18:59 Weight 72.575 kg
== END | disposition home or self-care (01) ==
LOC: WWCWWP 12:31
PROVIDERS: ATTEND Surgery
DX: Z53.9 Procedure and treatment not carried out, unspecified reason (principal)

== ENCOUNTER → 2021-12-09 | Outpatient (CLI) | payer MEDICARE, OTHER ==
--- NOTE | 2021-12-09 14:03 | MM ---
Reason for Exam: Follow-up at short interval from prior study. Last screening mammogram was performed 12 month(s) ago. Patient History: Menarche at age 12. First Full-Term at age 22. Left ovary removed at age 33. Right ovary removed at age 33. Hysterectomy at age 33. Postmenopausal. Estrogen for 22 years from age 33 until age 55. 2008, Bilateral Reduction. 01/09/2021, Benign Core Biopsy on the right side. 07/12/2019, High risk Core Biopsy on the right side. 05/09/2019, High risk Core Biopsy on the right side. 05/09/2019, High risk Core Biopsy on the right side. Paternal grandmother had breast cancer. Paternal cousin had breast cancer, age 35. Risk Values: Vi 5 year model risk: 2.4%. NCI Lifetime model risk: 6.1%. Tissue Density: There are scattered fibroglandular densities. Findings: Analyzed By CAD. Architectural distortion from a prior biopsy is again evident. This appears stable without interval change. Multiple surgical clips in core markers are within the right breast. Left breast appears stable. No significant interval change within either breast. Overall Assessment: Benign, BI-RAD 2 Management: Diagnostic Mammogram of both breasts in 1 year. A clinical breast exam by your physician is recommended on an annual basis and results should be correlated with mammographic findings. This exam should not preclude additional follow-up of suspicious palpable abnormalities. Results were given to the patient verbally at the time of exam. Electronically signed and approved by: Huey Reddy D.O. Radiologis
== END | disposition home or self-care (01) ==
LOC: RADMAMWWP 13:26
PROVIDERS: ATTEND Surgery
DX: R92.8 Other abnormal and inconclusive findings on diagnostic imaging of breast (principal)
CPT/HCPCS: 77066; G0279; 77062

== ENCOUNTER → 2022-12-11 | Outpatient (CLI) | payer MEDICARE, OTHER ==
[2022-12-11 11:46] VITALS: BP 155/78; PULSE 72; RESP 17; TEMP 98
== END ==
LOC: WWCWWP 09:57
PROVIDERS: ATTEND Surgery
DX: Z53.9 Procedure and treatment not carried out, unspecified reason (principal)

== ENCOUNTER → 2022-12-11 | Outpatient (CLI) | payer MEDICARE, OTHER ==
--- NOTE | 2022-12-11 11:34 | MM ---
Reason for Exam: Additional evaluation requested from prior study. Last screening mammogram was performed 12 month(s) ago. Patient History: Menarche at age 12. First Full-Term at age 22. Left ovary removed at age 33. Right ovary removed at age 33. Hysterectomy at age 33. Postmenopausal. Other cancer at or over age 49. Estrogen for 22 years from age 33 until age 55. 2007, Bilateral Reduction. 01/09/2021, Benign Core Biopsy on the right side. 07/12/2019, High risk Core Biopsy on the right side. 05/09/2019, High risk Core Biopsy on the right side. 05/09/2019, High risk Core Biopsy on the right side. Paternal grandmother had breast cancer. Paternal cousin had breast cancer, age 35. Risk Values: Vi 5 year model risk: 2.4%. NCI Lifetime model risk: 5.8%. Prior Study Comparison: 08/20/1993 Screening Mammogram, Unknown. 11/29/2018 Bilateral Screening Mammogram, [facility]. 12/09/2018 Left Diagnostic Mammogram, [facility]. 05/09/2019 Right Diagnostic Mammogram, [facility]. 01/10/2020 Right Diagnostic Mammogram, [facility]. 01/31/2020 Left Diagnostic Mammogram, [facility]. 11/30/2020 Bilateral Diagnostic Mammogram, [facility]. 01/09/2021 Right Diagnostic Mammogram, [facility]. 07/15/2021 Right Diagnostic Mammogram, [facility]. 12/09/2021 Bilateral MG 3D diag mammo w/cad BEL, [facility]. Tissue Density: There are scattered fibroglandular densities. Findings: Analyzed By CAD. Postexcisional changes on the right. 2 microplates are also present in this region at the 9 to 10:00 position. The more anteriorly located ribbon clip now shows new heterogeneous calcifications. On magnification views, these may represent early fat necrosis calcifications. Reassess in 6 months. Otherwise, no significant change. Overall Assessment: Probably benign, BI-RAD 3 Management: Diagnostic Mammogram of the right breast in 6 months. Results were given to the patient verbally at the time of exam. Patient should continue monthly self-breast exams. A clinical breast exam by your physician is recommended on an annual basis. This exam should not preclude additional follow-up of suspicious palpable abnormalities. Note on Vi scores and lifetime risk: 1. A Vi score greater than 3% is considered moderate risk. If this is the case, consider specialist referral to assess eligibility for a risk reducing agent. 2. If overall lifetime risk for the development of breast cancer is 20% or higher, the patient may qualify for future screening with alternating mammogram and breast MRI. Electronically signed and approved by: Vlad Ariza M.D. Radiologist
--- NOTE | 2022-12-11 11:52 | P.PN ---
Subjective Progress Note Date: 12/11/22 Principal diagnosis: fibrocystic breast changes Vi is a 72 year old white female satus post a right breast ultrasound core biopsy on 01-10-22 which was scar/fat necrosis. She had a bilateral mammogram on 12-11-22. She has not noted any new lumps masses or nodules of concern in either breast. She has had bilateral breast reduction in the past. Family History: paternal grandmother: breast paternal cousin: breast cancer at 36 Hormonal history: Menarche: 11 breast fed: none, first born at 22 Menopause: hysterectomy at 33 for bleeding, left ovaries BCP: 15 years hormones: none Medical history: oral sores Surgical History: right foot left knee bilateral elbows two back surgeries bilateral breast reduction back surgery cancer removed lower lip Social History: smoke: none alcohol: occasional drugs: none - Constitutional Constitutional: Denies chills, Denies fever - EENT Eyes: denies blurred vision, denies pain Ears: deny: decreased hearing, tinnitus Ears, nose, mouth and throat: Reports headache, Denies sore throat - Breasts Breasts: bilateral: as per HPI - Cardiovascular Comment: left side ? breast vs. lungs Cardiovascular: Reports chest pain, Denies shortness of breath - Respiratory Comment: bronchitis Respiratory: Denies cough - Gastrointestinal Gastrointestinal: Denies abdominal pain, Denies diarrhea, Denies nausea, Denies vomiting - Genitourinary (Female) Genitourinary: Denies dysuria, Denies hematuria - Menstruation Menstruation: Reports post hysterectomy - Musculoskeletal Comment: Arthritis, degenerative joint disease, myalgias - Integumentary Integumentary: Denies pruritus, Denies rash - Neurological Neurological: Reports numbness, Reports weakness - Psychiatric Psychiatric: Reports depression, Denies anxiety - Endocrine Endocrine: Reports fatigue, Denies weight change - Hematologic/Lymphatic Comment: low platelets in the past - Allergic/Immunologic Allergic/Immunologic: Reports as per HPI Objective - Constitutional General appearance: Present: cooperative - EENT Eyes: Present: EOMI ENT: Present: hearing grossly normal - Neck Neck: Present: normal ROM - Respiratory Respiratory: bilateral: CTA - Cardiovascular Rhythm: regular Heart sounds: normal: S1, S2 - Gastrointestinal General gastrointestinal: Present: soft - Integumentary Integumentary: Present: normal turgor - Musculoskeletal Musculoskeletal: Present: gait normal - Psychiatric Psychiatric: Present: A&O x's 3, appropriate affect, intact judgment & insight - Additional findings Additional findings: Breast Exam: BRA: 38D inspection: Bilateral well-healed scars from prior reduction mammoplasty Palpation: Right breast: Multi-positional exam fibrocystic changes no dominant masses or nodules of concern Right axilla: No adenopathy of concern Left breast: Multiple positional exam fibrocystic changes no dominant masses or nodules of concern Left axilla: No adenopathy of concern Assessment and Plan Assessment: Impression: Fibrocystic breast [place] [address] to be reviewed Plan: Reviewed bilateral mammogram CC: Kayla Juares
== END | disposition home or self-care (01) ==
LOC: RADMAMWWP 09:55
PROVIDERS: ATTEND Surgery
DX: R92.8 Other abnormal and inconclusive findings on diagnostic imaging of breast (principal); Z78.0 Asymptomatic menopausal state; Z80.3 Family history of malignant neoplasm of breast
CPT/HCPCS: 77066; G0279; 77062

== ENCOUNTER → 2023-06-12 | Outpatient (CLI) | payer MEDICARE, OTHER | END | disposition home or self-care (01) | LOC: RADMAMWWP 10:12 | PROVIDERS: ATTEND Surgery | DX: Z53.9 Procedure and treatment not carried out, unspecified reason (principal) ==

== ENCOUNTER → 2023-06-12 | Outpatient (CLI) | payer MEDICARE, OTHER ==
--- NOTE | 2023-06-12 10:53 | MM ---
Reason for Exam: Follow-up at short interval from prior study. Last screening mammogram was performed 6 month(s) ago. Patient History: Menarche at age 12. First Full-Term at age 22. Left ovary removed at age 33. Right ovary removed at age 33. Hysterectomy at age 33. Postmenopausal. Other cancer at or over age 49. Estrogen for 22 years from age 33 until age 55. 2007, Bilateral Reduction. 01/09/2021, Benign Core Biopsy on the right side. 07/12/2019, High risk Core Biopsy on the right side. 05/09/2019, High risk Core Biopsy on the right side. 05/09/2019, High risk Core Biopsy on the right side. Paternal grandmother had breast cancer. Paternal cousin had breast cancer, age 35. Risk Values: Vi 5 year model risk: 2.4%. NCI Lifetime model risk: 5.8%. Prior Study Comparison: 07/15/2021 Right Diagnostic Mammogram, [facility]. 12/09/2021 Bilateral MG 3D diag mammo w/cad BEL, [facility]. 12/11/2022 Bilateral MG 3D diag mammo w/cad BEL, [facility]. Tissue Density: Right: There are scattered fibroglandular densities. Findings: Analyzed By CAD. Postsurgical change redemonstrated right breast. Additional microclip laterally with adjacent calcifications which are stable for 6 months. Additional short interval follow-up recommended at the time of the patient's annual exam. No significant change in the interval. Overall Assessment: Probably benign, BI-RAD 3 Management: Diagnostic Mammogram of both breasts in 6 months. Total one-year follow-up right breast and annual exam of the left breast. Results were given to the patient verbally at the time of exam. Patient should continue monthly self-breast exams. A clinical breast exam by your physician is recommended on an annual basis. This exam should not preclude additional follow-up of suspicious palpable abnormalities. Note on Vi scores and lifetime risk: 1. A Vi score greater than 3% is considered moderate risk. If this is the case, consider specialist referral to assess eligibility for a risk reducing agent. 2. If overall lifetime risk for the development of breast cancer is 20% or higher, the patient may qualify for future screening with alternating mammogram and breast MRI. Electronically signed and approved by: Vlad Ariza M.D. Radiologist
== END ==
LOC: WWCWWP 10:13
PROVIDERS: ATTEND Surgery
DX: Z78.0 Asymptomatic menopausal state (principal); Z80.3 Family history of malignant neoplasm of breast; Z90.721 Acquired absence of ovaries, unilateral
CPT/HCPCS: 77065; G0279; 77061

== ENCOUNTER → 2023-12-14 | Outpatient (CLI) | payer MEDICARE, OTHER ==
--- NOTE | 2023-12-14 09:03 | MM ---
Reason for Exam: Follow-up at short interval from prior study. Last screening mammogram was performed 12 month(s) ago. Patient History: Menarche at age 12. First Full-Term at age 22. Left ovary removed at age 33. Right ovary removed at age 33. Hysterectomy at age 33. Postmenopausal. Other cancer at or over age 49. Estrogen for 22 years from age 33 until age 55. 2007, Bilateral Reduction. 01/09/2021, Benign Core Biopsy on the right side. 07/12/2019, High risk Core Biopsy on the right side. 05/09/2019, High risk Core Biopsy on the right side. 05/09/2019, High risk Core Biopsy on the right side. Paternal grandmother had breast cancer. Paternal cousin had breast cancer, age 35. Risk Values: Vi 5 year model risk: 2.4%. NCI Lifetime model risk: 5.5%. Prior Study Comparison: 11/30/2020 Bilateral Diagnostic Mammogram, [facility]. 07/15/2021 Right Diagnostic Mammogram, [facility]. 12/09/2021 Bilateral MG 3D diag mammo w/cad BEL, [facility]. 12/11/2022 Bilateral MG 3D diag mammo w/cad BEL, [facility]. 06/12/2023 Right MG 3D diag mammo w/cad RT, [facility]. Tissue Density: The breasts are heterogeneously dense, which may obscure small masses. Findings: Analyzed By CAD. Postoperative changes right breast. No evidence for mass. No suspicious microcalcifications. Overall Assessment: Benign, BI-RAD 2 Management: Screening Mammogram of both breasts in 1 year. . Results were given to the patient verbally at the time of exam. Patient should continue monthly self-breast exams. A clinical breast exam by your physician is recommended on an annual basis. This exam should not preclude additional follow-up of suspicious palpable abnormalities. Note on Vi scores and lifetime risk: 1. A Vi score greater than 3% is considered moderate risk. If this is the case, consider specialist referral to assess eligibility for a risk reducing agent. 2. If overall lifetime risk for the development of breast cancer is 20% or higher, the patient may qualify for future screening with alternating mammogram and breast MRI. Electronically signed and approved by: Emery East M.D. Radiologis
== END | disposition home or self-care (01) ==
LOC: RADMAMWWP 08:40
PROVIDERS: ATTEND Surgery
DX: R92.333 Mammographic heterogeneous density, bilateral breasts (principal); R92.8 Other abnormal and inconclusive findings on diagnostic imaging of breast; Z78.0 Asymptomatic menopausal state; Z80.3 Family history of malignant neoplasm of breast
CPT/HCPCS: 77066; G0279; 77062

== ENCOUNTER → 2025-01-02 | Outpatient (CLI) | payer MEDICARE, OTHER ==
--- NOTE | 2025-01-02 13:40 | MM ---
Reason for Exam: Screening (asymptomatic). Last mammogram was performed 1 year(s) and 1 month(s) ago. Patient History: Menarche at age 12. First Full-Term at age 22. Left ovary removed at age 33. Right ovary removed at age 33. Hysterectomy at age 33. Postmenopausal. Other cancer at or over age 49. Estrogen for 22 years from age 33 until age 55. 2007, Bilateral Reduction. 01/09/2021, Benign Core Biopsy on the right side. 07/12/2019, High risk Core Biopsy on the right side. 05/09/2019, High risk Core Biopsy on the right side. 05/09/2019, High risk Core Biopsy on the right side. Paternal grandmother had breast cancer. Paternal cousin had breast cancer, age 35. Risk Values: Vi 5 year model risk: 2.4%. NCI Lifetime model risk: 5.1%. Prior Study Comparison: 12/11/2022 Bilateral MG 3D diag mammo w/cad BEL, [facility]. 06/12/2023 Right MG 3D diag mammo w/cad RT, [facility]. 12/14/2023 Bilateral MG 3D diag mammo w/cad BEL, [facility]. Tissue Density: There are scattered areas of fibroglandular density. Findings: Analyzed By CAD. There is no suspicious group of microcalcifications or new suspicious mass in either breast. Overall Assessment: Benign, BI-RAD 2 Management: Screening Mammogram of both breasts in 1 year. . Patient should continue monthly self-breast exams. A clinical breast exam by your physician is recommended on an annual basis. This exam should not preclude additional follow-up of suspicious palpable abnormalities. Note on Vi scores and lifetime risk: 1. A Vi score greater than 3% is considered moderate risk. If this is the case, consider specialist referral to assess eligibility for a risk reducing agent. 2. If overall lifetime risk for the development of breast cancer is 20% or higher, the patient may qualify for future screening with alternating mammogram and breast MRI. [facility], , 01/02/2025 1:37 PM. Electronically signed and approved by: Emery East M.D. Radiologis
== END | disposition home or self-care (01) ==
LOC: RADMAMWWP 11:48
PROVIDERS: ATTEND Internal Medicine Geriatric Medicine
DX: Z12.31 Encounter for screening mammogram for malignant neoplasm of breast (principal); R92.323 Mammographic fibroglandular density, bilateral breasts; Z78.0 Asymptomatic menopausal state; Z80.3 Family history of malignant neoplasm of breast
CPT/HCPCS: 77063; 77067